=== PATIENT | male | born 1950 | race Caucasian/White ===

== ENCOUNTER → 2017-03-29 | Outpatient (CLI) | payer MEDICARE, BC ==
[~2017-03-29] MED LIST: AMITRYPTYLINE PO; ASPIRIN81 M2 PO; ENALAPRIL MALEA20 MG PO; FENOFIBRATE160 MG PO; LANTUS SOLOSTAR3 ML SUBQ; LASIX PO; METOPROLOL SUCC50 MG PO; NOVOLOG100 U/M3 SUBQ; PRAVASTATIN SOD40 MG PO; PROTONIX PO; SOD BICARBONATE PO
--- NOTE | ~2017-03-29 | NM19 ---
[facility] A Service of [facility] & [facility] RADIOLOGY TEXT RESULTS PATIENT: TAIWO THOMASON LOCATION: [facility] : 46 UNIT #: [id number] AGE: [address]: RENETTA HILL APRN SEX: M ORDER DR: [id number] [facility] [address] [place], [place] [address] [id number] O MR#: [id number] Acc #: [id number] NAME: TAIWO THOMASON. : 1950 SEX: M STUDY DATE/TIME: 03/29/2017 7:22 UNIT: [facility] ROOM: STUDY DESCRIPTION: ME Gastric Emptying Study Attending Physician: Renetta Hill Aprn Referring Physician: Renetta Hill Aprn Ordering Physician: Renetta Hill Aprn Primary Care Physician: Carson Davis M.D. MEDICAL IMAGING REPORT This report is preliminary unless electronic signature is present EXAM Gastric emptying scan, 03/29/2017 HISTORY Abdominal bloating, belching abdominal cramping, epigastric neuropathy, gastroesophageal reflux disease, diabetes and dyspepsia. Symptoms for 4 months. FINDINGS The patient ingested 547 microcuries of technetium 99m tagged sulfur colloid in eggs. Images of the upper abdomen were obtained for 4 hours. After 1 hour the stomach was 60% emptying. After 2 hours the stomach was 85% empty. After 4 hours the stomach was 99% empty. Normal range is greater than 60% empty after 2 hours of imaging and greater than 90% empty after 4 hours of imaging. IMPRESSION Normal gastric emptying after 2 and 4 hours of imaging. Dictated by... José Coley M.D. THIS IS AN ELECTRONICALLY VERIFIED REPORT José Coley M.D. at 03/30/2017 2:25 PM YASH/celestino TD: 03/29/2017 14:32 JOB #: [id number] MEDICAL IMAGING REPORT Page 1 of 1 COPY
== END | disposition home or self-care (01) ==
LOC: CNUC 06:41
DX: R10.13 Epigastric pain (principal); E11.40 Type 2 diabetes mellitus with diabetic neuropathy, unspecified; R14.0 Abdominal distension (gaseous)
CPT/HCPCS: 78264; A9541